=== PATIENT | female | born 1970 | race Caucasian/White ===

== ENCOUNTER 2022-07-05 18:48 | Emergency (ER) | payer BC ==
[~2022-07-05] VITALS: Ht 167.6 cm; Wt 74.8 kg
[2022-07-05 18:50] VITALS: BP 130/91
--- NOTE | 2022-07-05 18:50 | NUR ---
to bed via wheelchair.
--- NOTE | 2022-07-05 18:50 | NUR ---
Karly allen in [facility] - 07/05/22 at 1904 by [facility] TO BED AMBULATORY VIA W/C
[2022-07-05] MEDS ORDERED: methocarbamoL 500 MG TAB PO STA (19:24)
[2022-07-05] MEDS ORDERED: KETOROLAC 15 MG/ML VIAL IM ONE (19:25)
--- NOTE | 2022-07-05 19:26 | NUR ---
PT IN ROOM 8 . FAMILY MEMBER AT BEDSIDE
--- NOTE | 2022-07-05 19:30 | NUR ---
52YR OLD FEMALE BIB SELF C/O L SHOULDER TO CP X2DAYS. PAIN STARTED WHILE DOING YARD WORK 2DAYS AGO. PAIN STARTS IN L SHOULDER RADIATES TO CHEST. STABBING 7/10 PAIN. DENIES N/V. PT IS A&OX4. RESP EVEN AND UNLABORED. ON BEDSIDE MONITOR. HOB ELEVATED SIDE RAILS UP X2 BED AT LOWEST POSITION NKDA NO MED HX
--- NOTE | 2022-07-05 19:46 | NUR ---
X-Ray at bedside.
[2022-07-05 19:47] LABS: BASOPHILS % (AUTO) 0.3 % (0.0-2.0); EOSINOPHILS % (AUTO) 0.2 % (0.0-4.0); HEMATOCRIT 39.1 % (36-48); HEMOGLOBIN 13.2 g/dL (12.0-16.0); LYMPHOCYTES % (AUTO) 11.7 % (20.5-51.1); MEAN CORPUSCULAR HEMOGLOBIN 30 pg (27-31); MEAN CORPUSCULAR HGB CONC 34 g/dL (33-37); MEAN CORPUSCULAR VOLUME 89.5 fL (80-94); MONOCYTES # (AUTO) 0.5 K/uL (0.8-1.0); MONOCYTES % (AUTO) 6.7 % (1.7-9.3); NEUTROPHILS # (AUTO) 6.7 K/uL (1.8-7.7); NEUTROPHILS % (AUTO) 81.1 % (42.2-75.2); PLATELET COUNT (AUTO) 202 K/uL (140-450); RED BLOOD CELL COUNT(AUTO) 4.37 MIL/uL (4.20-5.40); WHITE BLOOD COUNT (AUTO) 8.2 K/uL (4.8-10.8)
[2022-07-05 20:08] LABS: ALBUMIN 3.6 g/dL (3.4-5.0); ANION GAP 13.1 (8-16); ASPARTATE AMINOTRANSFERASE 17 U/L (15-37); CARBON DIOXIDE 26.5 mmol/L (21-32); CHLORIDE 103 mmol/L (98-107); CREATININE 0.9 mg/dL (0.6-1.3); GFR ARICAN-AMERICAN 85 mL/min (>90); GLUCOSE 108 mg/dL (74-106); POTASSIUM 3.6 mmol/L (3.5-5.1); SODIUM SERUM 139 mmol/L (136-145); TOTAL BILIRUBIN 0.6 mg/dL (0.0-1.0); UREA NITROGEN, BLOOD 9 mg/dL (7-18)
[2022-07-05] MEDS ORDERED: DICL20GE TP (20:35)
[2022-07-05] MEDS ORDERED: METH-1681 PO (20:35)
[2022-07-05 20:45] VITALS: BP 130/91
--- NOTE | 2022-07-05 20:45 | NUR ---
Patient discharged with v/s stable. Written and verbal after care instructions given and explained. Patient alert, oriented and verbalized understanding of instructions. Ambulatory with steady gait. All questions addressed prior to discharge. ID band removed. Patient advised to follow up with PMD. Rx of LANA SUAREZ ARTHRITIS PAIN given. Patient educated on indication of medication including possible reaction and side effects. Opportunity to ask questions provided and answered.
--- NOTE | 2022-07-05 20:45 | NUR ---
Chart checked and completed.
== END 2022-07-05 20:45 | disposition home or self-care (01) ==
LOC: MED 18:48
DX: S13.4XXA Sprain of ligaments of cervical spine, initial encounter (principal); R07.89 Other chest pain; M62.838 Other muscle spasm; Z79.899 Other long term (current) drug therapy; X58.XXXA Exposure to other specified factors, initial encounter; Y93.89 Activity, other specified; Y92.096 Garden or yard of other non-institutional residence as the place of occurrence of the external cause; Y99.8 Other external cause status
CPT/HCPCS: 36415; 71045; 80053; 84484; 85025; 93005; 96372; 99285; J1885